=== PATIENT | female | born 1995 | race Caucasian/White ===

== ENCOUNTER 2017-01-17 03:02 | Observation (INO) | payer OTHER ==
[~2017-01-17] VITALS: Ht 157.5 cm; Wt 59.9 kg
[2017-01-17 04:14] VITALS: BP 140/90
[2017-01-17] MEDS ORDERED: PREN1TAB80 PO (04:16)
[2017-01-17] MEDS ORDERED: tyleno PO (16:06)
[2017-01-18] MEDS ORDERED: IBUP-1547 PO (12:37)
== END 2017-01-17 05:05 | disposition home or self-care (01) ==
LOC: 4S 03:02
PROVIDERS: ADMIT Obstetrics & Gynecology; ATTEND Obstetrics & Gynecology
DX: O62.9 Abnormality of forces of labor, unspecified (principal); O48.0 Post-term pregnancy; O26.893 Other specified pregnancy related conditions, third trimester; R10.9 Unspecified abdominal pain; Z3A.40 40 weeks gestation of pregnancy
CPT/HCPCS: 59025; G0378

== ENCOUNTER 2017-01-17 13:55 | Inpatient (IN) | payer OTHER ==
[~2017-01-17] VITALS: Ht 157.5 cm; Wt 59.9 kg
[~2017-01-17 13:55] MED LIST: PREN1TAB80 PO
[2017-01-17] MEDS ORDERED: RINGERS SOLUTION,LACTATED 1,000 ML IV PRN (14:26)
[2017-01-17] MEDS ORDERED: OXYTOCIN 30 UNITS/LACT RINGERS 500 ML IV ONE (14:26)
[2017-01-17] MEDS ORDERED: METOCLOPRAMIDE HCL 5 MG/ML 2 ML VIAL IVP PRN (14:30)
[2017-01-17] MEDS ORDERED: CITRIC ACID/SODIUM CITRATE 30 ML SOLUTION UDCUP PO PRN (14:30)
[2017-01-17] MEDS ORDERED: AMPICILLIN SODIUM 2 GM/NS 100 ML IV ONE ×2 (14:30→14:36)
[2017-01-17] MEDS ORDERED: RINGERS SOLUTION,LACTATED 1,000 ML IV ONE (14:36)
[2017-01-17] MEDS: RINGERS SOLUTION,LACTATED 1,000 ML IV SCH ×2 (14:47→16:27)
[2017-01-17 15:10] LABS: BASOPHILS % (AUTO) 0.6 % (0.0-2.0); EOSINOPHILS % (AUTO) 0.1 % (1.0-6.0); HEMATOCRIT 40.5 % (36-46); HEMOGLOBIN 13.8 g/dL (12.0-16.0); LYMPHOCYTES % (AUTO) 8.8 % (22.0-44.0); MEAN CORPUSCULAR HEMOGLOBIN 31.3 pg (26.0-34.0); MEAN CORPUSCULAR VOLUME 92 fL (80-100); MONOCYTES # (AUTO) 0.5 K/uL (0.1-1.0); MONOCYTES % (AUTO) 4.3 % (2.0-9.0); NEUTROPHILS # (AUTO) 10.2 K/uL (1.8-7.7); RED CELL DISTRIBUTION WIDTH 13.6 % (11.5-14.5); WHITE BLOOD COUNT (AUTO) 11.8 K/uL (4.5-11.0)
[2017-01-17 15:14] LABS: NEUTROPHILS % (AUTO) 86.2 % (40.0-70.0)
[2017-01-17] MEDS ORDERED: FentaNYL/BUPIV 0.125%/NS/PF 200 ML ED ONE (16:04)
[2017-01-17] MEDS ORDERED: BUPIVACAINE HCL/PF 0.25% 30 ML VIAL ONE (16:06)
[2017-01-17] MEDS ORDERED: tyleno PO (16:06)
[2017-01-17] MEDS ORDERED: FentaNYL/BUPIV 0.125%/NS/PF 200 ML ED PRN (16:48)
[2017-01-17] MEDS ORDERED: ONDANSETRON HCL 4 MG/2 ML VIAL IVP PRN (17:00)
[2017-01-17] MEDS ORDERED: DiphenhydrAMINE HCL 50 MG/ML VIAL IVP PRN (17:00)
[2017-01-17 17:48] VITALS: BP 134/88
[2017-01-17] MEDS ORDERED: AMPICILLIN SODIUM 1 GM/NS 50 ML IV SCH (18:30)
[2017-01-17] MEDS ORDERED: OXYGEN THERAPY IH SCH (20:00)
[2017-01-17] MEDS ORDERED: LIDOCAINE HCL/PF 1% 30 ML VIAL INJ PRN (22:30)
[2017-01-17] MEDS ORDERED: LANOLIN 7 GM OINTMENT TP PRN (22:30)
[2017-01-17] MEDS ORDERED: GLYCERIN/WITCH HAZEL LEAF 40 PADS JAR TP PRN (22:30)
[2017-01-17] MEDS ORDERED: BENZOCAINE 20%/MENTHOL 56 GM SPRAY CANISTER TP PRN (22:30)
[2017-01-17] MEDS ORDERED: OxyCODONE HCL/ACETAMINOPHEN 5-325 MG TABLET PO PRN ×2 (22:30)
[2017-01-17] MEDS ORDERED: MAGNESIUM HYDROXIDE SUSPENSION 30 ML UDCUP PO PRN (22:30)
[2017-01-18] MEDS: IBUPROFEN 800 MG TABLET PO PRN ×2 (01:44→07:51)
[2017-01-18] MEDS ORDERED: IBUP-1547 PO (12:37)
== END 2017-01-18 15:50 | disposition home or self-care (01) | DRG 775 ==
LOC: 4S 13:55 → OBSVTOIN 14:34
PROVIDERS: ADMIT Obstetrics & Gynecology; ATTEND Obstetrics & Gynecology
PROC: 10E0XZZ Delivery of Products of Conception, External Approach (ICD-10-PCS; principal; 2017-01-17)
PROC: 0HQ9XZZ Repair Perineum Skin, External Approach (ICD-10-PCS; 2017-01-17)
PROC: 3E0S3CZ (ICD-10-PCS; 2017-01-17)
PROC: 00HU33Z Insertion of Infusion Device into Spinal Canal, Percutaneous Approach (ICD-10-PCS; 2017-01-17)
DX: O99.824 Streptococcus B carrier state complicating childbirth (principal); O70.0 First degree perineal laceration during delivery; Z37.0 Single live birth; Z3A.40 40 weeks gestation of pregnancy
CPT/HCPCS: 86850; 86900; 86901; J0290; J2590; J3490; J7120